=== PATIENT | female | born 1940 | race Caucasian/White ===

== ENCOUNTER → 2017-01-22 | Outpatient (CLI) | payer MEDICARE, BC ==
[~2017-01-22] MED LIST: CEPHALEXIN500 M1 PO; COUMADIN 22.5 MG/TAB PO; LASIX 20MG TABL20 MG PO; MOBIC15 MG PO; NORCO 325 MG-7.1 TAB PO; PEPCID 20MG TAB20 MG PO; PHENERGAN 25 TA25 MG PO; PREMPRO 0.625/21 TAB PO; PRINIVIL2.5 MG PO; SENOKOT8.6 MG PO; TOPROL XL100 MG PO; ULTRAM 50MG TAB50 MG PO
== END ==
LOC: MC.RAD 13:20
DX: Z12.31 Encounter for screening mammogram for malignant neoplasm of breast (principal)

== ENCOUNTER → 2018-02-08 | Outpatient (CLI) | payer MEDICARE, BC | LOC: MC.RAD 09:58 | DX: Z12.31 Encounter for screening mammogram for malignant neoplasm of breast (principal) ==

== ENCOUNTER → 2018-12-17 | Outpatient (CLI) | payer MEDICARE, BC | LOC: COL.RAD 10:44 | DX: N13.5 Crossing vessel and stricture of ureter without hydronephrosis (principal); J84.10 Pulmonary fibrosis, unspecified; M41.86 Other forms of scoliosis, lumbar region; M51.36 Other intervertebral disc degeneration, lumbar region; M46.96 Unspecified inflammatory spondylopathy, lumbar region; Z95.0 Presence of cardiac pacemaker | CPT/HCPCS: Q9967 ==

== ENCOUNTER 2021-03-29 08:32 | Day surgery (SDC) | payer MEDICARE, BC ==
[~2021-03-29] VITALS: Ht 149.9 cm; Wt 45.7 kg
[2021-03-29] VITALS (9 sets, daily range): BP systolic 125–148; BP diastolic 64–77; PULSE 59–70; TEMP 97.9
[~2021-03-29 08:32] MED LIST changes: +TOPROL XL 50MG50 MG PO; -TOPROL XL100 MG PO
[2021-03-29 09:14] LABS: HEMOGLOBIN 10.9 g/dl (12.5-16.0); MEAN CELL VOLUME 95 fl (80.0-100.0); MEAN CORPUSCULAR HEMOGLOBIN 30 pg (27-31); MEAN CORPUSCULAR HGB CONC 31 g/dl (33.0-37.0); MEAN PLATELET VOLUME 10.7 fl (7.4-10.4); PLATELET COUNT 217 K/mm3 (130-400); RED BLOOD COUNT 3.68 M/mm3 (4.10-5.30); REDCELL DISTRIBUTION WIDTH-CV 14.5 % (11.5-14.5)
[2021-03-29 09:15] LABS: HEMATOCRIT 35.1 % (37.0-47.0)
[2021-03-29] MEDS ORDERED: COZAAR 25MG25 MG/TAB PO (09:17)
[2021-03-29] MEDS ORDERED: NEURONTIN100 MG/CAP PO (09:18)
[2021-03-29] MEDS ORDERED: CALCIUM CITRAT950 MG PO (09:19)
[2021-03-29] MEDS ORDERED: FISH OIL 1000MG1 CAP PO (09:19)
[2021-03-29] MEDS ORDERED: VITAMIN C500 MG PO (09:20)
[2021-03-29] MEDS ORDERED: OCUVITE1 TA1 PO (09:20)
[2021-03-29] MEDS ORDERED: ASPIRIN E.C. 8181 MG PO (09:21)
[2021-03-29] MEDS ORDERED: CBD OIL PO (09:22)
[2021-03-29 09:24] LABS: PROTHROMBIN TIME 10.9 SECONDS (9.7-12.8)
[2021-03-29 09:33] LABS: CALCIUM 10.2 mg/dL (8.4-10.2); CREATININE, serum 1.25 mg/dL (0.57-1.11); POTASSIUM 4.7 mmol/L (3.5-4.5)
--- NOTE | 2021-03-29 09:35 | NUR ---
SEE MERGE FOR ALL MEDICATION ADMINISTRATION TIMES AND INTRA AND POST SEDATION ASSESSMENTS
[2021-03-29] MEDS ORDERED: CEPHALEXIN500 M1 PO (11:47)
--- NOTE | 2021-03-29 15:15 | NUR ---
Pt to exit at this time. Pt did well during her recovery after generator change. pacer site is covered with clean dry and intact dressing. I reviewed dc/rx and fu instructions with pt. She verbalized understanding. Pt was up and ambulatory in room with steady gait. iv dc'd with cath intact, dressing applied. to exit via wheelchair.
== END 2021-03-29 15:15 | disposition home or self-care (01) ==
LOC: COL.CAR 08:32
PROVIDERS: Internal Medicine Cardiovascular Disease
DX: Z45.010 Encounter for checking and testing of cardiac pacemaker pulse generator [battery] (principal); I47.2 Ventricular tachycardia; I11.0 Hypertensive heart disease with heart failure; I50.9 Heart failure, unspecified; I42.9 Cardiomyopathy, unspecified; I48.91 Unspecified atrial fibrillation
CPT/HCPCS: C2621; J0690; J2250; J3010; J7040

== ENCOUNTER 2021-09-06 10:21 | Day surgery (SDC) | payer MEDICARE, BC ==
[~2021-09-06] VITALS: Ht 149.9 cm; Wt 43.5 kg
[~2021-09-06 10:21] MED LIST changes: +ASPIRIN E.C. 8181 MG PO; +CALCIUM CITRAT950 MG PO; +CBD OIL PO; +COZAAR 25MG25 MG/TAB PO; +FISH OIL 1000MG1 CAP PO; +NEURONTIN100 MG/CAP PO; +OCUVITE1 TA1 PO; +VITAMIN C500 MG PO
[2021-09-06 12:32] VITALS: BP 165/79; PULSE 115; TEMP 97.4
[2021-09-06 13:25] VITALS: BP 146/83; PULSE 83; TEMP 97.5
--- NOTE | 2021-09-06 13:25 | NUR ---
PATIENT TO ROOM 6 VIA CART. ASSIST X 2 TO CHAIR. VITAL SIGNS WNL. PATIENT HAS BACK PAIN FROM SCOLIOSIS BUT DENIES ANY OTHER PAIN. SHE REQUESTS DIET COKE AND A MUFFIN. WILL CONTINUE TO MONITOR.
[2021-09-06 13:40] VITALS: BP 147/77; PULSE 77
--- NOTE | 2021-09-06 13:40 | NUR ---
PATIENT IS AWAKE AND ORIENTED. DENIES ANY NAUSEA OR PAIN. IV DISCONTINUED. DOCTOR AT BEDSIDE. VITAL SIGNS WNL. WILL CONINUE TO MONITOR.
[2021-09-06 13:55] VITALS: BP 125/72; PULSE 91
--- NOTE | 2021-09-06 13:55 | NUR ---
PATIENT IS READY FOR DISCHARGE. FINAL SET OF VITAL SIGNS WNL. DISCHARGE INSTRUCTIONS REVIEWED WITH PATIENT AND . WILL DISCHARGE AFTER PATIENT IS DRESSED.
== END 2021-09-06 14:20 | disposition home or self-care (01) ==
LOC: SDCO 10:21
DX: D50.9 Iron deficiency anemia, unspecified (principal); K29.30 Chronic superficial gastritis without bleeding; K92.1 Melena; I10 Essential (primary) hypertension; K57.30 Diverticulosis of large intestine without perforation or abscess without bleeding; Z79.899 Other long term (current) drug therapy
CPT/HCPCS: J2704; J7030

== ENCOUNTER 2022-08-15 13:35 | Outpatient (RCR) | payer MEDICARE ==
[~2022-08-15] VITALS: Ht 149.9 cm; Wt 42.9 kg
[2022-08-15 15:01] VITALS: BP 110/61; PULSE 70; TEMP 98.3
[2022-08-15 15:25] VITALS: BP 107/55; PULSE 68; TEMP 98.1
[2022-08-15 15:40] VITALS: BP 123/69; PULSE 70; TEMP 98.2
[2022-08-15 15:55] VITALS: BP 126/71; PULSE 68; TEMP 98.3
[2022-08-15 16:25] VITALS: BP 140/73; PULSE 70; TEMP 98.2
[2022-08-15 17:25] VITALS: BP 159/85; PULSE 70; TEMP 98.3
--- NOTE | 2022-08-15 18:00 | NUR ---
Pt tolerated blood infusion and iron infusion well. Iron was administered prior to the blood while we waited on blood bank. Pt tolerated po fluids during infusion and her vs remained within her normal limits. She was assisted to the main lobby via wheelchair where her was waiting to drive her home. Pt did complain of swollen/edematous feet upon discharge but she verbalized that this is common for her after she has been sitting for extended periods. IV was removed upon discharge.
== END 2022-08-15 18:00 | disposition home or self-care (01) ==
LOC: EUO 13:35
DX: D50.0 Iron deficiency anemia secondary to blood loss (chronic) (principal)
CPT/HCPCS: J1756; J7050; P9016

== ENCOUNTER → 2023-02-12 | Outpatient (RCR) | payer MEDICARE ==
[~2023-02-12] VITALS: Ht 149.9 cm; Wt 41.6 kg
[~2023-02-12] MED LIST changes: +PRIL40 PO; +SYSTANE 0.4%-0.1 SOL OU; +TYLENOL 500MG500 MG PO
[2023-02-12 11:36] VITALS: BP 110/66; PULSE 73; TEMP 98.8
--- NOTE | 2023-02-12 12:04 | NUR ---
Pt tolerated venofer without issue. IV DC'd, site wrapped with coban. She is escorted out to meet in waiting room. Her gait is steady using wheeled walker. She is free of complaints at time of departing.
== END ==
LOC: EUO
DX: D50.0 Iron deficiency anemia secondary to blood loss (chronic) (principal)
CPT/HCPCS: J1756